=== PATIENT | female | born 1980 ===

== ENCOUNTER 2016-08-19 06:57 | Inpatient (IN) | payer MEDICAID ==
[2016-08-19] MEDS ORDERED: cefOXitin IV 2 gm in Dextrose 50 ML IVPB ONE ×2 (07:02→09:20)
[2016-08-19] MEDS ORDERED: Sodium Citrate/Citric Acid 15 ml Sol PO ONE (07:02)
[2016-08-19 07:03] VITALS: BMI 34.3
[2016-08-19] MEDS ORDERED: Lactated Ringer's 1,000 ML IV SCH (07:15)
[2016-08-19] MEDS: Lactated Ringer's 1,000 ML IV SCH ×3 (07:21→18:08)
--- NOTE | 2016-08-19 07:27 | OBADHP ---
Datetime: 08/19/2016 07:13 IP Chief Complaint Other: Advanced maternal age, desires permanent sterilization Admit Comment, IP Provider: 36 yo , LMP unsure, TALON 08/26/16, EGA 39 weeks previous C/S c/o c ontractions since 0200 hours, pain scale 4/10. (+) AFM; denies LOF, VB. provider: Dr. Felicia cota - denies issues. P Ob: C/S x 2: 1999, twin gestation at term: male, 6lb; female 5+lb. 2004, female, 6lb - both deli andres at [facility]. 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 Denies STIs or abnormal Pap PMH: denies PSH: C/S x 2 NKDA Meds: PNV - daily, iron - BID Soc Hx: denies tobacco, illicit drug or EtOH use. x 2 year; together x 4. Fam Hx: Mother age 50 - probable [place]. Father alive 68 y.o. - cardiac disease. Pat aunt - b reast cancer. P.E.: as above. WD in NAD; uncomfortable with contractions. Awake, alert, oriented to time, person and place Assessment: 36 yo P2013, 39 weeks, previous C/S for elective repeat C/S with bilateral tubal ligat ion. Category 1 tracing. Patient last apporximately [address] Calderon to obtain surgical conse nts and sterilization reaffirmation. Patient is clinically stable. Plan: 1) Admit 2) NPO 3) Admission labs 4) Continuous EFM 5) Tyson 6) Adbominal prep and shave 7) Mefoxin, risk and insurance consultant to O.R. 8) Notify anesthesia 9) Notify peds 10) Patient risk and insurance consultant to O.R. - Dr. Calderon made aware Pelvic Type - PN: Adequate Extremities - PN: Normal Abdomen - PN: Normal Back - PN: Normal Breast - PN: Not Done Lungs - PN: Normal Heart - PN: Normal Thyroid - PN: Not Done Neurologic - PN: Normal HEENT - PN: Normal General - PN: Normal Presentation-Admit: Vertex FHR - Baseline A Provider: 130 Membranes, Provider: Intact Contraction Comments Provider: 5 minutes Comments, ACOG Physical Exam: Skin: warm, dry, intact HEENT: full ROM Lungs: CTA bilaterally Cardiac: RRR, normal S1, S2 Abdomen: Soft, Gravid. Fundal height 38 cm. Healed Pfannenstiel scar : no masses or discharge Extremities: no calf tenderness, cyanosis or edema All other systems reviewed and are negative. Gestation - Est Wks by US: 39.0 IP Hx Assessment: The History has been Reviewed and is Current IP Chief Complaint: Uterine contractions; Scheduled Section NICHD Variability Prov Fetus A: Moderate 6-25bpm NICHD Accel Fetus A IP Provider: [id number] FHR Category Provider Fetus A: Category I NICHD Decel Fetus A IP Provider: None Dilatation, Provider: 0 Effacement, Provider: 30 Station, Provider: -3 Genitourinary Exam: Normal DTRs - PN: Not Done IP Adm Impression: Term, intrauterine ; No Active Labor; Intact Membranes IP Admit Plan: Admit to unit; Initiate Section protocol
[2016-08-19 08:54] LABS: BASO % 0.5 % (0.0-2.0); EOS # 0.1 K/uL (0.0-0.7); EOS % 1.6 % (0.0-4.0); HEMATOCRIT 35.3 % (34.0-47.0); LYMPH # 3.3 K/uL (1.0-4.3); LYMPH % 37.3 % (20.0-40.0); MEAN CORPUSCULAR HEMOGLOBIN 23.7 pg (27.0-31.0); MEAN PLATELET VOLUME 9.3 fL (7.2-11.7); MONO # 0.8 K/uL (0.0-0.8); MONO % 9.4 % (0.0-10.0); NRBC % 0.1 % (0.0-2.0); RED CELL DISTRIBUTION WIDTH 31.4 % (11.5-14.5); WHITE BLOOD COUNT 8.7 K/uL (4.8-10.8)
[2016-08-19 08:55] LABS: MEAN CELL VOLUME 71.9 fL (81.0-99.0)
[2016-08-19 09:04] LABS: CHLORIDE 101 mmol/L (98-107); POTASSIUM 3.3 mmol/L (3.6-5.2); SODIUM 135 mmol/L (132-148)
[2016-08-19 09:06] LABS: AST/SGOT 19 U/L (14-36); BILIRUBIN,TOTAL 0.5 mg/dL (0.2-1.3); BLOOD UREA NITROGEN 3 mg/dL (7-17); CARBON DIOXIDE 19 mmol/L (22-30); GFR AFRICAN-AMERICAN > 60; TOTAL PROTEIN 6.8 g/dL (6.3-8.3)
[2016-08-19 09:07] LABS: ALKALINE PHOSPHATASE 91 U/L (38-126); ALT/SGPT 14 U/L (9-52); GLUCOSE,RANDOM 73 mg/dL (65-105)
[2016-08-19] MEDS ORDERED: Sodium Citrate/Citric Acid 15 ml Sol ONE (09:20)
[2016-08-19] MEDS ORDERED: Oxytocin 20 units in LR 2,000 ML IV ONE (09:20)
[2016-08-19] MEDS ORDERED: ePHEDrine 50 mg/ml Inj ONE ×2 (10:28→10:51)
[2016-08-19] MEDS ORDERED: Lidocaine 2% MPF (5 ml) Inj ONE (11:12)
--- NOTE | 2016-08-19 12:51 | OP ---
PROCEDURE DATE: 08/19/2016 PREOPERATIVE DIAGNOSES: , intrauterine, term, previous section, third time and mul tiparity, voluntary sterilization. PROCEDURE PERFORMED: Repeat low transverse section and bilateral tubal ligation and lysis o f anterior abdominal wall adhesions. SURGEON: Dr. Felicia Calderon REEL WINDER: Dr. Kang ANESTHESIA: Spinal. ANESTHESIOLOGIST: Dr. Saleh OPERATIVE FINDINGS: The uterus was enlarged to term size gestation. There was noted an adhesion of the anterior abdominal wall of the uterus to the anterior surface of the lower uterine segment of the uterus. Both fallopian tubes and ovaries are grossly normal. OPERATIVE TECHNIQUE: The patient was prepped and draped in usual sterile manner under spinal anesthe hortencia. A Pfannenstiel skin incision was made traversing through the previous surgical scar. Incision was carried down through the subcutaneous region and the fascia was cut in the usual manner and muscl e splitting was performed and peritoneum was picked up and opened, thereby exposing the abdominal con tents. There was adhesion of the anterior surface of the lower uterine segment of the uterus to the anterior abdominal wall, which was lysed and from its attachment before the sectio n was performed. There was no bladder flap noted and a low transverse section was performed delivering a live baby boy, score of 9 and 9 from an MAGY position. Cord blood was obtained an d the placenta was thereby removed manually. After establishing hemostasis, the uterus was pulled up from the abdominal cavity and placed on the abdomen and the uterus was examined and both fallopian t ubes and ovaries were noted to be grossly normal. The lower uterine segment of uterus was repaired i n 2 layers by using #1 chromic catgut sutures. The first layer was continuous interlocking sutures a nd the second layer was continuous imbricating layers for hemostatic purposes. After establishing he mostasis, both fallopian tubes were identified and a modified [place] method of tubal ligation was pe rformed using 2-0 plain catgut sutures. After both fallopian tubes were noted to be established, the abdominal cavity was irrigated with Ringer's lactate solution. After the lap and sponge counts were announced to be correct, the abdominal cavity was closed in the following manner. Peritoneum was cl osed by using 0 chromic catgut using continuous sutures and Surgicel and Interceed were applied over the lower uterine segment of uterus as there was no bladder flap noted and the muscles were reapproxi mated using a 2-0 chromic catgut sutures using interrupted sutures and the fascial layer was closed b y using 0 Dexon using continuous sutures and interrupted sutures sutured in between the stitches and the subcutaneous layer was closed by using a 2-0 plain catgut suture using cutaneous sutures and the skin was reapproximated by the use of a 4-0 Biosyn using subcuticular stitches. The patient was lloyd sferred to recovery room in stable condition. ESTIMATED BLOOD LOSS: 500 mL. SPECIMENS: Consisted of a portion of the fallopian tubes on both sides, were sent to the laboratory for histopathological examination. The Tyson catheter was noted to be draining clear amount of approximately 300 mL of urine through the Tyson catheter and the thromboelastic stockings were in place while in the operating room as well as in the recovery room. Felicia Calderon MD cc: [id number] TT: 08/19/2016 12:50:58 en
[2016-08-19] MEDS ORDERED: cefOXitin IV 2 gm in Dextrose 50 ML IVPB SCH (17:00)
[2016-08-19] MEDS: cefOXitin IV 2 gm in Dextrose 50 ML IVPB SCH (18:03)
[2016-08-19] MEDS: Oxycodone/Acetaminophen 5/325 mg Tab PO PRN (22:54)
[2016-08-20] MEDS: cefOXitin IV 2 gm in Dextrose 50 ML IVPB SCH ×2 (02:04→10:20)
[2016-08-20] MEDS: Lactated Ringer's 1,000 ML IV SCH ×2 (02:09→10:22)
[2016-08-20] MEDS: Oxycodone/Acetaminophen 5/325 mg Tab PO PRN ×3 (03:46→19:15)
[2016-08-20 07:26] LABS: BASO % 0.2 % (0.0-2.0); EOS # 0.1 K/uL (0.0-0.7); EOS % 0.7 % (0.0-4.0); HEMATOCRIT 32.4 % (34.0-47.0); LYMPH # 1.6 K/uL (1.0-4.3); MEAN CELL VOLUME 71.4 fL (81.0-99.0); MEAN CORPUSCULAR HEMOGLOBIN 23.7 pg (27.0-31.0); MEAN CORPUSCULAR HGB CONC 33.2 g/dL (33.0-37.0); MEAN PLATELET VOLUME 8.8 fL (7.2-11.7); MONO # 0.8 K/uL (0.0-0.8); MONO % 6.8 % (0.0-10.0); NRBC % 0.2 % (0.0-2.0); RED CELL DISTRIBUTION WIDTH 31.3 % (11.5-14.5); WHITE BLOOD COUNT 11.8 K/uL (4.8-10.8)
[2016-08-20] MEDS: Simethicone 80 mg Chewtab PO SCH (21:59)
--- NOTE | 2016-08-20 22:00 | OBPPN ---
Datetime: 08/20/2016 21:43 PP Pain Prov: Within normal limits PP Nausea Prov: Denies PP Flatus Prov: Yes PP BM Prov: No PP Breasts Prov: Normal PP Heart Prov: Normal PP Lungs Prov: Normal PP Abdomen/Uterus Prov: Normal PP Lochia Prov: Normal PP Vulva/Perineum Prov: Normal PP CVA Tenderness Prov: Normal PP Extremities Prov: Normal PP C/S Incision Prov: Normal PP Progress Prov: Normal PP Impression Prov: Normal progression PP Plan Prov: Continue present management PP Progress Note Prov: 1ST POST OP DAY : AFEBRILE, AMBULATORY, BREASTS ARE SOFT, LACTATING, ABDOMEN SOFT, DRESSINGS REMOVED, STERILE STRIPS IN PLACE, WOUND WELL COAPTATED. COMPLAINING OF GAS PAINS, NO BM YET. MYLICON CHEWABLE TABLETS GIVEN PO, DULCOLAX SUPPOSITORY INSERTED RECTALLY.. ADVISED TO AMBU LATE. IP PP Procedures: None Vital Signs Provider PP: Reviewed; Within Normal Limits
[2016-08-21] MEDS: Oxycodone/Acetaminophen 5/325 mg Tab PO PRN ×3 (01:18→21:14)
[2016-08-21] MEDS ORDERED: Influenza Virus Vaccine 45 mcg/0.5 ml Syr IM ONE (07:36)
[2016-08-21] MEDS: Simethicone 80 mg Chewtab PO SCH ×4 (09:01→21:14)
--- NOTE | 2016-08-21 16:17 | OBPPN ---
Datetime: 08/21/2016 16:02 PP Pain Prov: Within normal limits PP Nausea Prov: Denies PP Flatus Prov: Yes PP BM Prov: Yes PP Breasts Prov: Normal PP Heart Prov: Normal PP Lungs Prov: Normal PP Abdomen/Uterus Prov: Normal PP Lochia Prov: Normal PP Vulva/Perineum Prov: Normal PP CVA Tenderness Prov: Normal PP Extremities Prov: Normal PP C/S Incision Prov: Normal PP Progress Prov: Normal PP Impression Prov: Normal progression PP Plan Prov: Continue present management PP Progress Note Prov: POST OP DAY #2 AFEBRILE, AMBULATORY, BREASTS ARE SOFT, ABDOMEN IS SOFT, WOUND WELL COAPTATED, STERILE STRIPS IN PLACE, EXTREMITIES NO EDEMA , NO TENDERNESS, LOCHIA MINIMAL, VOID ED FREELY. MOVED HER BOWELS TODAY WITH THE FLEET ENEMA. FOR DISCHARGED HOME IN AM. TO THE OFFICE IN 2 WEEKS FOR CHECKUP. PRESCRIPTION WRITTEN FOR ANTIBIOTICS, MYLICON 80 MG QIQ, MOTRIN 600 MG PRN FOR PA INS. DULCOLAX 2 TABS DAILY FOR CONSTIPATION PRN . IP PP Procedures: None Vital Signs Provider PP: Reviewed
--- NOTE | 2016-08-21 16:29 | OBDCSUM ---
Datetime: 08/21/2016 16:16 Discharged to, Provider: Home Follow up at, Provider: DR.L. FOWLER Disch Instr Activity: Normal activity Disch Instr Diet: Regular Discharge Instructions, Provider: Routine instructions given Discharge Diagnosis, Provider: Term Delivered Discharge Time: 08/21/2016 16:00 Follow up in weeks, Provider: 2 WEEKS Disch Referrals: None Contraception discussed, Prov: Yes Discharge Comment, Provider: DISCHARGED HOME IN AM WITH PRESCRIPTIONS FOR PAINS [ MOTRIN 600 MG ] , KEFLEX 500 MG QID FOR 7 DAYS, MYLICON 80 MG QID FOR GAS PAINS, DULCOLAX 2 TABS FOR CONSTIPATION. TOT HE OFFICE IN 2 WEEKS FOR CHECKUP.. Contraception after Delivery: Tubal Ligation
[2016-08-21] MEDS ORDERED: Oxycodone/Acetaminophen 5/325 mg Tab PO PRN (16:33)
[2016-08-22 04:49] VITALS: O2SAT 97
[2016-08-22 08:36] VITALS: RESP 18
[2016-08-22 08:50] VITALS: BP 117/71; PULSE 63; TEMP 99
[2016-08-22] MEDS: Simethicone 80 mg Chewtab PO SCH (09:06)
[2016-08-22] MEDS: Oxycodone/Acetaminophen 5/325 mg Tab PO PRN (09:08)
== END 2016-08-22 12:04 | disposition home or self-care (01) | DRG 371 ==
LOC: C.4D 06:57 → C.4M 14:53
PROVIDERS: ADMIT Obstetrics & Gynecology; ATTEND Obstetrics & Gynecology
PROC: 10D00Z1 Extraction of Products of Conception, Low, Open Approach (ICD-10-PCS; principal; 2016-08-19)
PROC: 0UB70ZZ Excision of Bilateral Fallopian Tubes, Open Approach (ICD-10-PCS; 2016-08-19)
PROC: 0UN90ZZ Release Uterus, Open Approach (ICD-10-PCS; 2016-08-19)
DX: O34.211 Maternal care for low transverse scar from previous cesarean delivery (principal); O99.89 Other specified diseases and conditions complicating pregnancy, childbirth and the puerperium; N73.6 Female pelvic peritoneal adhesions (postinfective); O09.523 Supervision of elderly multigravida, third trimester; Z30.2 Encounter for sterilization; Z3A.39 39 weeks gestation of pregnancy; Z37.0 Single live birth